=== PATIENT | male | born 1985 | race African-American/Black ===

== ENCOUNTER 2017-12-09 11:42 | Emergency (ER) | payer OTHER ==
[~2017-12-09] VITALS: Ht 182.9 cm; Wt 73.6 kg
[2017-12-09] MEDS ORDERED: NAPROSYN500 MG PO (14:44)
[2017-12-09] MEDS ORDERED: GUAIFENESIN600 M1 PO (14:44)
[2017-12-09 15:09] VITALS: BP 123/77
== END 2017-12-09 15:10 | disposition home or self-care (01) ==
LOC: EME 11:42
DX: J06.9 Acute upper respiratory infection, unspecified (principal); H61.23 Impacted cerumen, bilateral
CPT/HCPCS: 99281; 99284